=== PATIENT | female | born 2000 | race American Indian/Alaskan Native ===

== ENCOUNTER 2018-04-28 09:48 | Outpatient (CLI) | payer MEDICAID ==
[2018-04-28 10:20] VITALS: BP 114/67
[2018-04-28 11:14] LABS: Bacteria,Urine 2+ /HPF (Negative); Bilirubin,Urine NEG (Negative); Blood,Urine NEG (Negative); Color,Urine Yellow (Yellow); Protein,Urine <15 mg/dL mg/dL (Negative); Urobilinogen,Urine < 2.0 mg/dL (<2.0)
[2018-04-28] MEDS ORDERED: LACTATED RINGERS 500 ML IV ONE (11:39)
== END 2018-04-28 11:30 | disposition home or self-care (01) ==
LOC: TRG 09:48
PROVIDERS: ATTEND Obstetrics & Gynecology
DX: O47.03 False labor before 37 completed weeks of gestation, third trimester (principal); O99.513 Diseases of the respiratory system complicating pregnancy, third trimester; J45.909 Unspecified asthma, uncomplicated; Z3A.36 36 weeks gestation of pregnancy
CPT/HCPCS: 59025; 81001

== ENCOUNTER 2018-07-20 13:18 | Emergency (ER) | payer MEDICAID ==
[2018-07-20 13:36] VITALS: BP 121/77
[2018-07-20] MEDS ORDERED: IBUPROFEN PO ONE (14:46)
[2018-07-20] MEDS ORDERED: DUONEB *Not for PRN Use IH ONE (14:46)
[2018-07-20] MEDS ORDERED: DELTASONE PO ONE (14:46)
--- NOTE | 2018-07-20 14:53 | Emergency Department Report ---
ED Asthma HPI - General Chief Complaint: Upper Respiratory Infection Stated Complaint: CHUCKY Time Seen by Provider: 07/20/18 14:13 Source: patient Mode of arrival: Ambulatory Limitations: No Limitations - History of Present Illness Initial Comments: Mary is a 17 yo female with history of mild intermittent asthma and seasonal allergies who presents with cough, nasal congestion and shortness of breath. She's been out of her asthma medications. She is taking Zyrtec [id number] for allergies. While outside, she developed shortness of breath with chest tightness. She feels better indoors. MD Complaint: "asthma attack" -: Sudden, This afternoon Asthma History: childhood onset, history of frequent attac Severity: mild Context: ran out of meds Associated Symptoms: dry cough, chest pain - Related Data Previous Rx's Medication Instructions Recorded Last Taken Type ALBUTEROL Inhaler (OR & NICU) 2 puff IH QID PRN #1 device 07/20/18 Unknown Rx [ProAir HFA Inhaler] ALBUTEROL NEB's [Proventil 0.083% 2.5 mg IH TID PRN #1 box 07/20/18 Unknown Rx NEBS] Fluticasone [Flonase] 1 spray NS QDAY 30 Days #1 bottle 07/20/18 Unknown Rx Prednisone [predniSONE 10 mg 10 mg PO .TAPER #1 tab.ds.pk 07/20/18 Unknown Rx (6-Day Pack, 21 Tabs)] Allergies Allergy/AdvReac Type Severity Reaction Status Date / Time azithromycin Allergy Hives Verified 07/20/18 13:19 ED Review of Systems ROS: Stated complaint: CHUCKY Other details as noted in HPI Constitutional: malaise. denies: chills, fever ENT: congestion Respiratory: cough, shortness of breath, wheezing Cardiovascular: chest pain Gastrointestinal: denies: abdominal pain ED Past Medical Hx - Past Medical History Previous Medical History?: Yes Hx Hypertension: No Hx Diabetes: No Hx Deep Vein Thrombosis: No Hx Renal Disease: No Hx Sickle Cell Disease: No Hx Seizures: Yes (two years ago) Hx Asthma: Yes (last attack two weeks ago) Hx HIV: No Additional medical history: anemia - Surgical History Additional Surgical History: tonsillectomy - Social History Smoking Status: Never Smoker Substance Use Type: None - Medications Home Medications: Home Medications Medication Instructions Recorded Confirmed Last Taken Type ALBUTEROL Inhaler (OR & NICU) 2 puff IH QID PRN #1 device 07/20/18 Unknown Rx [ProAir HFA Inhaler] ALBUTEROL NEB's [Proventil 0.083% 2.5 mg IH TID PRN #1 box 07/20/18 Unknown Rx NEBS] Fluticasone [Flonase] 1 spray NS QDAY 30 Days #1 bottle 07/20/18 Unknown Rx Prednisone [predniSONE 10 mg 10 mg PO .TAPER #1 tab.ds.pk 07/20/18 Unknown Rx (6-Day Pack, 21 Tabs)] ED Physical Exam - General Limitations: No Limitations General appearance: alert, in no apparent distress, other (talkative no acute distress no work of breathing appears comfortable) - Head Head exam: Present: atraumatic, normocephalic - Eye Eye exam: Present: normal appearance - ENT ENT exam: Present: mucous membranes moist - Neck Neck exam: Present: normal inspection, full ROM - Respiratory Respiratory exam: Present: normal lung sounds bilaterally, chest wall tenderness. Absent: respiratory distress, wheezes, rales, rhonchi, accessory muscle use, decreased breath sounds, prolonged expiratory - Cardiovascular Cardiovascular Exam: Present: regular rate, normal rhythm, normal heart sounds. Absent: systolic murmur, diastolic murmur, rubs, gallop - GI/Abdominal GI/Abdominal exam: Present: soft, normal bowel sounds. Absent: distended, tenderness, guarding, rebound - Extremities Exam Extremities exam: Present: normal inspection - Back Exam Back exam: Present: normal inspection - Neurological Exam Neurological exam: Present: alert, oriented X3 - Psychiatric Psychiatric exam: Present: normal affect, normal mood - Skin Skin exam: Present: warm, dry, intact, normal color. Absent: rash ED Course Vital Signs 07/20/18 13:35 Temperature 98.2 F Pulse Rate 101 H Respiratory 20 Rate Blood Pressure 121/77 O2 Sat by Pulse 98 Oximetry ED Medical Decision Making - Medical Decision Making Angelika presents with seasonal allergies and asthma exacerbation. Prescribed albuterol, Flonase, prednisone taper. Critical care attestation.: If time is entered above; I have spent that time in minutes in the direct care of this critically ill patient, excluding procedure time. ED Disposition Clinical Impression: Acute asthma exacerbation, Allergic rhinitis Disposition: TO HOME OR SELFCARE Is pt being admited?: No Does the pt Need Aspirin: No Condition: Stable Instructions: Asthma (ED) Prescriptions: Fluticasone [Flonase] 1 spray NS QDAY 30 Days #1 bottle Prednisone [predniSONE 10 mg (6-Day Pack, 21 Tabs)] 10 mg PO .TAPER #1 tab.ds.pk ALBUTEROL Inhaler (OR & NICU) [ProAir HFA Inhaler] 2 puff IH QID PRN #1 device PRN Reason: Shortness Of Breath ALBUTEROL NEB's [Proventil 0.083% NEBS] 2.5 mg IH TID PRN #1 box PRN Reason: Wheezing Referrals: FANNIE PECK MD [Primary Care Provider] - 3-5 Days
== END 2018-07-20 15:32 | disposition home or self-care (01) ==
LOC: ED 13:18
DX: J45.901 Unspecified asthma with (acute) exacerbation (principal); J30.9 Allergic rhinitis, unspecified
CPT/HCPCS: 94640; 99282; J7512